=== PATIENT | female | born 1990 | race Caucasian/White ===

== ENCOUNTER 2018-11-17 19:04 | Emergency (ER) | payer OTHER ==
[2018-11-17 19:53] VITALS: TEMP 98.2
[2018-11-17] MEDS ORDERED: Tetracaine 0.5% Ophth 2 ML BOTTLE ONE (21:35)
[2018-11-17] MEDS ORDERED: Tetracaine 0.5% Ophth 2 ML BOTTLE OU STA (21:37)
[2018-11-17] MEDS ORDERED: Fluorescein 1 mg Ophthalmic Strip OU STA (21:38)
[2018-11-17] MEDS ORDERED: Fluorescein 1 mg Ophthalmic Strip ONE (21:57)
--- NOTE | 2018-11-17 22:10 | ED PDOC ---
HPI: Eye Injury/Pain Time Seen by Provider: 11/17/18 19:59 Chief Complaint (Nursing): Eye Problem Chief Complaint (Provider): b/l eye irritation History Per: Patient History/Exam Limitations: no limitations Additional Complaint(s): 28 y/o F with no significant PMH who presents with eye irritation that began this evening. Pt states that she was sitting in her apartment when she suddenly began having eye itching so she started rubbing her eyes. She then felt a foreign body sensation in Right greater than left eye. When she looked in her eye, she saw a "dimple" in her pupil and became concerned so presented to ED. Whit francois used over the counter antihistamine drops that have since improved her discomfort. Denies drainage from eye, acute pain or visual blurriness. Past Medical History Reviewed: Historical Data, Nursing Documentation, Vital Signs Vital Signs: Last Vital Signs Temp 98.2 F 11/17/18 19:52 Pulse 74 11/17/18 19:52 Resp 15 11/17/18 19:52 BP 113/74 11/17/18 19:52 Pulse Ox 98 11/17/18 19:52 Primary Care Provider: Procedure,Nonphys - Medical History PMH: No Chronic Diseases - Family History Family History: States: Unknown Family Hx - Immunization History Hx Tetanus Toxoid Vaccination: No Hx Influenza Vaccination: No Hx Pneumococcal Vaccination: No - Allergies Allergies/Adverse Reactions: Allergies Allergy/AdvReac Type Severity Reaction Status Date / Time No Known Allergies Allergy Verified 11/17/18 19:51 Review of Systems Eyes: Positive for: Conjunctivae Inflammation. Negative for: Pain, Vision Change Physical Exam - Reviewed Nursing Documentation Reviewed: Yes Vital Signs Reviewed: Yes - Physical Exam Appears: Positive for: Uncomfortable Eye Exam: Positive for: EOMI, PERRL, Conjunctival injection (B/L), Other (eyelids inverted, no foreign body noted. Visual acuity: Right: 20/25; Left 20/10; Both: 20/10. ). Negative for: Periorbital swelling, Periorbital tenderness - ECG O2 Sat by Pulse Oximetry: 98 Medical Decision Making Medical Decision Making: Eye examined under Mario lamp after instillation of Tetracaine and Fluorescein shows no evidence of corneal ulceration. Dr. Bassett of ophthalmology consulted and advised to have patient follow up in his office tomorrow morning at 9am. No medications advised at this time. Patien in agreement with plan. Stable for d/c home. Disposition - Clinical Impression Clinical Impression: Eye irritation - Patient ED Disposition Is Patient to be Admitted: No Discussed With Dr.: Alvarado Bassett - Disposition Referrals: Alvarado Bassett MD [Staff Provider] - Disposition: Routine/Home Disposition Time: 22:09 Condition: STABLE Additional Instructions: Follow up with Dr. Bassett in his office tomorrow morning at 9am. Forms: [employer] ([place] Print Language: SAMI
[2018-11-17 22:34] VITALS: BP 110/76; PULSE 71; RESP 16
[2018-11-18 01:25] VITALS: O2SAT 98
== END 2018-11-17 22:24 | disposition home or self-care (01) ==
LOC: H.ER 19:04
DX: H57.89 Other specified disorders of eye and adnexa (principal)